=== PATIENT | male | born 1965 | race African-American/Black ===

== ENCOUNTER 2018-10-30 09:49 | Emergency (ER) | payer OTHER ==
[~2018-10-30] VITALS: Ht 170.2 cm; Wt 95.3 kg
[2018-10-30 10:00] VITALS: BP 147/102
[2018-10-30] MEDS ORDERED: KETOROLAC TROMETH 60MG/2ML VIAL IM ONE (10:45)
== END 2018-10-30 11:40 | disposition home or self-care (01) ==
LOC: ER 09:53
DX: S16.1XXA Strain of muscle, fascia and tendon at neck level, initial encounter (principal); S50.812A Abrasion of left forearm, initial encounter; V48.5XXA Car driver injured in noncollision transport accident in traffic accident, initial encounter; Y93.89 Activity, other specified; Y99.8 Other external cause status; Y92.488 Other paved roadways as the place of occurrence of the external cause
CPT/HCPCS: 72040; 96372; 99283; J1885